=== PATIENT | female | born 1980 | race American Indian/Alaskan Native ===

== ENCOUNTER 2017-05-20 11:25 | Emergency (ER) | payer MEDICAID ==
[2017-05-20 12:39] LABS: Basophils % (Auto) 0.7 % (0.0-1.8); Eosinophils % (Auto) 1.5 % (0.0-4.3); Hematocrit 47.2 % (30.3-42.9); Hemoglobin 14.8 gm/dl (10.1-14.3); Mean Corpuscular HGB Conc 31 % (30-34); Mean Corpuscular Volume 81 fl (79-97); Platelet Count 312 K/mm3 (140-440); Red Blood Count 5.87 M/mm3 (3.65-5.03); Red Cell Distribution Width 16.3 % (13.2-15.2); White Blood Count 5.8 K/mm3 (4.5-11.0)
[2017-05-20 12:40] LABS: Mean Corpuscular Hemoglobin 25 pg (28-32)
--- NOTE | 2017-05-20 13:29 | Emergency Department Report ---
ED General Adult HPI - General Chief complaint: Chest Pain Stated complaint: PAIN Time Seen by Provider: 05/20/17 13:29 Source: patient, EMS Mode of arrival: Stretcher Limitations: No Limitations, Physical Limitation - History of Present Illness Initial comments: Patient is a 37-year-old female past medical history of morbid obesity who presents with chest pain. Patient states that chest pain has been going on for the last 2 days. Patient states that chest pains located in the epigastric area it's pleuritic in nature. Patient denies any nausea or vomiting. She states that she came into the emergency department because she was feeling this very sore type of pain in her chest. Patient has had no leg swelling or hemoptysis. Patient is satting 100% on room air and has no tachycardia. Putting pressure on her chest makes the pain worse nothing makes it better. Severity scale (0 -10): 6 - Related Data Previous Rx's Medication Instructions Recorded Last Taken Type Acetaminophen 1,000 mg PO Q6HR #60 capsule 05/20/17 Unknown Rx Naproxen [Naprosyn] 500 mg PO BID #30 tablet 05/20/17 Unknown Rx Allergies Allergy/AdvReac Type Severity Reaction Status Date / Time iodine Allergy Rash Verified 05/20/17 11:33 ED Review of Systems ROS: Stated complaint: PAIN Other details as noted in HPI Constitutional: denies: chills, fever Eyes: denies: eye pain, eye discharge, vision change ENT: denies: ear pain, throat pain Respiratory: denies: cough, shortness of breath, wheezing Cardiovascular: chest pain. denies: palpitations Endocrine: no symptoms reported Gastrointestinal: denies: abdominal pain, nausea, diarrhea Genitourinary: denies: urgency, dysuria, discharge Musculoskeletal: denies: back pain, joint swelling, arthralgia Skin: denies: rash, lesions Neurological: denies: headache, weakness, paresthesias Psychiatric: denies: anxiety, depression Hematological/Lymphatic: denies: easy bleeding, easy bruising ED Past Medical Hx - Past Medical History Previous Medical History?: Yes - Surgical History Past Surgical History?: Yes Additional Surgical History: Hysterecotomy 2013 - Social History Smoking Status: Never Smoker Substance Use Type: Marijuana - Medications Home Medications: Home Medications Medication Instructions Recorded Confirmed Last Taken Type Acetaminophen 1,000 mg PO Q6HR #60 capsule 05/20/17 Unknown Rx Naproxen [Naprosyn] 500 mg PO BID #30 tablet 05/20/17 Unknown Rx ED Physical Exam - General Limitations: No Limitations, Physical Limitation General appearance: alert, in no apparent distress - Head Head exam: Present: atraumatic, normocephalic - Eye Eye exam: Present: normal appearance - ENT ENT exam: Present: mucous membranes moist - Neck Neck exam: Present: normal inspection - Respiratory Respiratory exam: Present: normal lung sounds bilaterally. Absent: respiratory distress - Cardiovascular Cardiovascular Exam: Present: regular rate, normal rhythm. Absent: systolic murmur, diastolic murmur, rubs, gallop - GI/Abdominal GI/Abdominal exam: Present: soft, normal bowel sounds - Extremities Exam Extremities exam: Present: normal inspection - Back Exam Back exam: Present: normal inspection - Neurological Exam Neurological exam: Present: alert, oriented X3 - Psychiatric Psychiatric exam: Present: normal affect, normal mood - Skin Skin exam: Present: warm, dry, intact, normal color. Absent: rash ED Course Vital Signs 05/20/17 05/20/17 05/20/17 11:33 12:05 12:16 Temperature Pulse Rate 105 H 87 Respiratory 18 22 Rate Blood Pressure 130/0 115/57 115/57 Blood Pressure [Left] O2 Sat by Pulse 95 95 Oximetry 05/20/17 05/20/17 05/20/17 12:23 12:30 12:46 Temperature 98 F Pulse Rate 72 76 78 Respiratory 12 15 23 Rate Blood Pressure 115/57 115/57 Blood Pressure 115/57 [Left] O2 Sat by Pulse 95 97 71 L Oximetry 05/20/17 05/20/17 05/20/17 13:00 13:16 13:30 Temperature Pulse Rate 83 74 82 Respiratory 11 L 24 24 Rate Blood Pressure 115/57 131/82 131/82 Blood Pressure [Left] O2 Sat by Pulse 95 98 96 Oximetry ED Medical Decision Making - Lab Data Result diagrams: 05/20/17 12:19 05/20/17 12:13 Lab Results 05/20/17 05/20/17 Range/Units 12:13 12:19 WBC 5.8 (4.5-11.0) K/mm3 RBC 5.87 H (3.65-5.03) M/mm3 Hgb 14.8 H (10.1-14.3) gm/dl Hct 47.2 H (30.3-42.9) % MCV 81 (79-97) fl MCH 25 L (28-32) pg MCHC 31 (30-34) % RDW 16.3 H (13.2-15.2) % Plt Count 312 (140-440) K/mm3 Lymph % (Auto) 34.1 (13.4-35.0) % [place]oshone % (Auto) 8.5 H (0.0-7.3) % Eos % (Auto) 1.5 (0.0-4.3) % Baso % (Auto) 0.7 (0.0-1.8) % Lymph # 2.0 (1.2-5.4) K/mm3 [place]oshone # 0.5 (0.0-0.8) K/mm3 Eos # 0.1 (0.0-0.4) K/mm3 Baso # 0.0 (0.0-0.1) K/mm3 Seg Neutrophils % 55.2 (40.0-70.0) % Seg Neutrophils # 3.2 (1.8-7.7) K/mm3 Sodium 144 (137-145) mmol/L Potassium 4.1 (3.6-5.0) mmol/L Chloride 101.5 (98-107) mmol/L Carbon Dioxide 27 (22-30) mmol/L Anion Gap 20 mmol/L BUN 11 (7-17) mg/dL Creatinine 0.5 L (0.7-1.2) mg/dL Estimated GFR > 60 ml/min BUN/Creatinine Ratio 22 % Glucose 88 (65-100) mg/dL Calcium 9.0 (8.4-10.2) mg/dL Troponin T < 0.010 (0.00-0.029) ng/mL - EKG Data -: EKG Interpreted by Me - EKG Data 05/20/17 15:20 EKG shows normal sinus rhythm no ST segment elevation or T wave inversion normal access. - Medical Decision Making Chief Medical diagnosis: Costochondritis Differential multiple diagnosis: N STEMI, electrolyte abnormality, GERD I will get a CBC, CMP, EKG, troponin, I will also get IM Toradol and oral Hiddenite. She is feeling better after pain medication I will send patient home with follow -up with primary care doctor laboratory findings are unremarkable. Discussed phlegm and patient patient agrees to plan additional verbal discharge retractions were given. Critical care attestation.: If time is entered above; I have spent that time in minutes in the direct care of this critically ill patient, excluding procedure time. ED Disposition Clinical Impression: Costochondritis, acute, Morbid (severe) obesity due to excess calories Disposition: TO HOME OR SELFCARE Is pt being admited?: No Does the pt Need Aspirin: No Condition: Stable Instructions: Chest Pain (ED), Costochondritis (ED), Weight Management (ED), Obesity (ED) Prescriptions: Acetaminophen 1,000 mg PO Q6HR #60 capsule Naproxen [Naprosyn] 500 mg PO BID #30 tablet Referrals: PREET CASE MD [Staff Physician] - 3-5 Days
[2017-05-20 13:34] VITALS: BP 131/82
[2017-05-20 13:35] LABS: Anion Gap 20 mmol/L; BUN/Creatinine Ratio 22; Blood Urea Nitrogen 11 mg/dL (7-17); Carbon Dioxide 27 mmol/L (22-30); Chloride 101.5 mmol/L (98-107); Glucose 88 mg/dL (65-100); Potassium 4.1 mmol/L (3.6-5.0); Sodium 144 mmol/L (137-145)
[2017-05-20] MEDS ORDERED: NORCO 10/325 PO ONE (13:40)
[2017-05-20] MEDS ORDERED: TORADOL IM ONE (13:40)
[2017-05-20] MEDS ORDERED: TYLENOL PO ONE (13:41)
== END 2017-05-20 21:30 | disposition home or self-care (01) ==
LOC: ED 11:25
DX: M94.0 Chondrocostal junction syndrome [Tietze] (principal); E66.01 Morbid (severe) obesity due to excess calories; F12.10 Cannabis abuse, uncomplicated
CPT/HCPCS: 36415; 80048; 84484; 85025; 93005; 93010; 96372; 99284; J1885

== ENCOUNTER 2021-04-10 10:21 | Emergency (ER) | payer MEDICAID ==
--- NOTE | 2021-04-10 10:32 | Emergency Department Report ---
ED General Adult HPI - General Stated complaint: CHEST PAIN/BILATERAL LEG PAIN Time Seen by Provider: 04/10/21 10:27 - History of Present Illness Initial comments: Patient presents ambulance with chest pain and leg pain. She had called EMS because of chest pain. She states that it started last night. She feels that somebody is sitting on her chest. Patient states that she has not really noticed any aggravating or alleviating factors. She does not get up and walk. She states that she has been in the hospital multiple times for chest pain and leg pain. Her legs been aching for months. She states that sometimes her legs hurt. Sometimes her chest hurts. Sometimes they both hurt. She has had no fevers or chills per there is no cough or congestion. Has had no vomiting or diarrhea. She has no dysuria or frequency. Patient states that she is compliant with her medications. EMS reports that they were convinced as her pill bottles should be empty based on the dates if she were compliant. - Related Data Previous Rx's Medication Instructions Recorded Last Taken Type Acetaminophen 1,000 mg PO Q6HR #60 capsule 05/20/17 Unknown Rx Naproxen [Naprosyn] 500 mg PO BID #30 tablet 05/20/17 Unknown Rx Allergies Allergy/AdvReac Type Severity Reaction Status Date / Time iodine Allergy Rash Verified 05/20/17 11:33 ED Review of Systems ROS: Stated complaint: CHEST PAIN/BILATERAL LEG PAIN Other details as noted in HPI Comment: All other systems reviewed and negative Constitutional: denies: fever Eyes: denies: eye pain ENT: denies: throat pain Respiratory: denies: cough Cardiovascular: as per HPI Endocrine: denies: unexplained weight loss Gastrointestinal: denies: abdominal pain Genitourinary: denies: dysuria Musculoskeletal: denies: back pain Skin: denies: rash Neurological: denies: headache Hematological/Lymphatic: easy bruising (Takes Eliquis) ED Past Medical Hx - Surgical History Additional Surgical History: Hysterecotomy 2013 - Social History Smoking Status: Never Smoker Substance Use Type: Marijuana - Medications Home Medications: Home Medications Medication Instructions Recorded Confirmed Last Taken Type Acetaminophen 1,000 mg PO Q6HR #60 capsule 05/20/17 Unknown Rx Naproxen [Naprosyn] 500 mg PO BID #30 tablet 05/20/17 Unknown Rx ED Physical Exam - General Limitations: No Limitations, Other (Pulse ox is noted. Patient is not hypoxic.) General appearance: alert, in no apparent distress, obese (Morbid) - Head Head exam: Present: atraumatic, normocephalic, normal inspection - Eye Eye exam: Present: normal appearance, EOMI. Absent: scleral icterus - ENT ENT exam: Present: normal exam, normal orophraynx, normal external ear exam - Neck Neck exam: Present: normal inspection. Absent: meningismus - Respiratory Respiratory exam: Present: normal lung sounds bilaterally. Absent: respiratory distress - Cardiovascular Cardiovascular Exam: Present: tachycardia, normal heart sounds - GI/Abdominal GI/Abdominal exam: Present: soft. Absent: distended, tenderness - Extremities Exam Extremities exam: Present: normal capillary refill, pedal edema (Bilateral 3+) - Back Exam Back exam: Absent: CVA tenderness (R), CVA tenderness (L) - Neurological Exam Neurological exam: Present: alert, oriented X3, CN II-XII intact, abnormal gait (Bedbound), reflexes normal - Psychiatric Psychiatric exam: Present: normal affect, normal mood - Skin Skin exam: Present: warm, dry ED Course Vital Signs 04/10/21 04/10/21 04/10/21 10:52 10:55 10:59 Temperature 98.3 F Pulse Rate 122 H Respiratory 20 20 Rate Blood Pressure 112/78 Blood Pressure 112/78 [Left] O2 Sat by Pulse 95 97 Oximetry 04/10/21 04/10/21 04/10/21 11:01 12:01 13:01 Temperature Pulse Rate 117 H 113 H 113 H Respiratory 14 15 25 H Rate Blood Pressure 112/78 151/102 120/80 Blood Pressure [Left] O2 Sat by Pulse 97 94 95 Oximetry 04/10/21 04/10/21 04/10/21 14:01 15:01 16:47 Temperature Pulse Rate 127 H 115 H 108 H Respiratory 12 17 22 Rate Blood Pressure 132/86 123/72 132/81 Blood Pressure [Left] O2 Sat by Pulse 91 95 Oximetry 04/10/21 04/10/21 17:01 17:09 Temperature Pulse Rate 110 H Respiratory 11 L Rate Blood Pressure 119/65 Blood Pressure [Left] O2 Sat by Pulse 99 Oximetry - Reevaluation(s) Reevaluation #1: 04/10/21 10:29 EMS was met. IV, labs, and x-ray were ordered. Field EKG was noted and unremarkable. Reevaluation #2: 04/10/21 12:57 EKG and labs have been noted. Patient has an elevated D-dimer with tachycardia. She is obese. She is supposed to be anticoagulated, but there is some concern as to whether she is taking her Eliquis. Based on that, she is not a low risk patient for PE exclusion. PERC criteria cannot be applied as she is tachycardic. CT angiogram has been ordered. Reevaluation #3: 04/10/21 14:27 Old records noted. Tylenol ordered. Reevaluation #4: 04/10/21 15:[address]. She now reports an allergy to contrast. She had been premedicated before with CT and this was done again. Reevaluation #5: 04/10/21 17:21 CT was noted. Heart rate is improved. At this time, there is no indication for admission. Case management has been involved. We will discharge the patient. ED Medical Decision Making - Lab Data Result diagrams: 04/10/21 11:01 04/10/21 11:01 - EKG Data -: EKG Interpreted by Me - EKG Data When compared to previous EKG there are: previous EKG unavailable 04/10/21 11:36 EKG shows a sinus tachycardia 117. QRS is normal at 92. QT corrected is normal at 461. Patient has no ST elevation to suggest STEMI. There is no evidence of ectopy. Patient does have T wave inversion in lead III. There is T wave inversion in aVF. There is no old EKG for comparison. Patient does have right axis deviation. - Radiology Data Radiology results: report reviewed - Medical Decision Making Patient presents with multiple issues. She has ongoing and chronic episodes of bilateral leg pain and intermittent chest pain. She has been seen and admitted numerous times at different hospitals. She is requesting senior care placement. Case management has been involved. They can work on senior care placement as an outpatient. There is no medical indication for admission. She does not have evidence of STEMI or NSTEMI. There is no evidence of an acute kidney injury. Patient is not hypoxic. She does not have impending respiratory failure. There is no CT evidence of pneumonia, pneumothorax, Covid, or pulmonary embolism. Patient's chronic symptoms can be managed as an outpatient. She certainly does not need inpatient care for these chronic issues. Critical Care Time: No Critical care attestation.: If time is entered above; I have spent that time in minutes in the direct care of this critically ill patient, excluding procedure time. ED Disposition Clinical Impression: Shortness of breath, Tachycardia, Precordial chest pain, Debility, unspecified Disposition: 01 HOME / SELF CARE / HOMELESS Is pt being admited?: No Condition: Stable Instructions: Nonspecific Chest Pain, Adult, Shortness of Breath, Adult, [id number], Sinus Tachycardia Additional Instructions: Continue to elevate the feet. Take your medication. See a regular physician. Follow-up as directed by case management who will help you with ongoing placement and social human services assistants issues. Referrals: PRIMARY MD KASEY [Primary Care Provider] - 3-5 Days MANOHAR TORREZ MD [Staff Physician] - 3-5 Days
--- NOTE | 2021-04-10 11:20 | XRay Report ---
CHEST 1 VIEW INDICATION: Chest pain. COMPARISON: None FINDINGS: Support devices: None. Heart: Within normal limits. Lungs/Pleura: No acute air space or interstitial disease. Additional findings: None. IMPRESSION: No acute findings. Signer Name: Paul Carrion Jr, MD Signed: 04/10/2021 11:16 AM Workstation Name: [id number]
[2021-04-10 11:23] LABS: Hematocrit 43.7 % (30.3-42.9); Hemoglobin 14.1 gm/dl (10.1-14.3); Mean Corpuscular HGB Conc 32 % (30-34); Mean Corpuscular Volume 85 fl (79-97); Platelet Count 373 K/mm3 (140-440); Red Blood Count 5.17 M/mm3 (3.65-5.03); Red Cell Distribution Width 15.2 % (13.2-15.2)
[2021-04-10 11:41] LABS: Blood Urea Nitrogen 9 mg/dL (7-17); Calcium 9.1 mg/dL (8.4-10.2); Hemolysis Index 6
[2021-04-10 11:46] LABS: BUN/Creatinine Ratio 30
[2021-04-10] MEDS ORDERED: ACETAMINOPHEN 500 MG TAB PO ONE (14:27)
[2021-04-10] MEDS ORDERED: FAMOTIDINE 20 MG/2 ML INJ IV ONE (15:37)
[2021-04-10] MEDS ORDERED: methylPREDNISolone Sod Suc 125 MG in SODIUM CHLORIDE 0.9% 100 ML IV ONE (15:37)
[2021-04-10] MEDS ORDERED: diphenhydrAMINE 50 MG/ML VIAL IV ONE (15:37)
[2021-04-10] MEDS ORDERED: methylPREDNISolone Sod Succinate 125 MG/2 ML INJ ONE (15:44)
--- NOTE | 2021-04-10 17:14 | Cat Scan Report ---
CTA CHEST WITH IV CONTRAST INDICATION: Chest pain, elevated d-dimer, possible PE. TECHNIQUE: Axial CT images were obtained through the chest after injection of 100 cc Omnipaque 350 IV contrast. 3 plane MIP reconstructions were produced. All CT scans at this location are performed using CT dose reduction for ALARA by means of automated exposure control. COMPARISON: One view of the chest performed today. FINDINGS: This study is limited by the patient's body habitus and motion artifact. PULMONARY ARTERIES: No central pulmonary emboli. AORTA AND ARTERIES: No acute abnormality. Normal caliber of the aorta. No significant atherosclerosis . HEART: No significant abnormality. MEDIASTINUM: Thyromegaly is noted with a noncalcified lower pole left thyroid nodule measuring 1.6 x 1.6 cm on image 9 of series 2. No significant adenopathy or mass. The trachea and main bronchi are pa tent and normal in caliber. LUNGS: No suspicious consolidation, nodule or mass. No pneumothorax or pleural effusion. ADDITIONAL FINDINGS: None. UPPER ABDOMEN: No acute findings. BONES: No acute abnormality. There are moderate degenerative changes along the spine. IMPRESSION: 1. No CT evidence for a central pulmonary embolism. 2. No acute findings. 3. Incidental thyroid nodule in the left lobe measuring 1.7 cm in a patient equal to or over age 35. Recommendation based on ACR guidelines: Diagnostic thyroid ultrasound. Signer Name: Albaro Armando MD Signed: 04/10/2021 5:09 PM Workstation Name: [id number]
[2021-04-10] MEDS ORDERED: ACETAMINOPHEN 325 MG TAB PO ONE (21:05)
[2021-04-11] MEDS ORDERED: NAPROXEN 500 MG TAB PO SCH ×2 (00:41→10:00)
[2021-04-11] MEDS ORDERED: ACETAMINOPHEN 500 MG TAB PO SCH ×2 (00:43→06:00)
[2021-04-11] MEDS ORDERED: NAPROXEN 500 MG TAB PO PRN (00:49)
[2021-04-11] MEDS ORDERED: ACETAMINOPHEN 500 MG TAB PO PRN (00:51)
[2021-04-11] MEDS ORDERED: ACETAMINOPHEN 500 MG PO SCH (06:00)
[2021-04-11 10:12] VITALS: BP 126/81
--- NOTE | 2021-04-11 10:34 | Electrocardiograph Report ---
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
== END 2021-04-11 10:27 | disposition home or self-care (01) ==
LOC: ED 10:21
DX: R06.02 Shortness of breath (principal); R00.0 Tachycardia, unspecified; R07.2 Precordial pain; R53.81 Other malaise; Z90.710 Acquired absence of both cervix and uterus; F12.90 Cannabis use, unspecified, uncomplicated; Z91.041 Radiographic dye allergy status
CPT/HCPCS: 36415; 71045; 71275; 80048; 83735; 84484; 85027; 85379; 93005; 96365; 96375; 99285; J1200; J2930; Q9967